=== PATIENT | male | born 2000 | race Two or more races ===

== ENCOUNTER 2021-12-09 23:07 | Emergency (ER) | payer OTHER ==
[~2021-12-09] VITALS: Ht 170.2 cm; Wt 68.0 kg
[2021-12-09 23:42] VITALS: BP 136/78
--- NOTE | 2021-12-10 00:33 | NUR ---
PT IS MEDICALLY CLEARED FOR BOOKING AND RELEASED IN STABLE CONDITION UNDER THE CARE OF [employer] OFFICERS. PT IS AMBULATORY ON STEADY GAIT. PT LEFT ON HAND CUFFS WITH [employer] OFFICERS
== END 2021-12-10 00:36 ==
LOC: ER 23:09
DX: R05.9 Cough, unspecified (principal); Z20.822 Contact with and (suspected) exposure to COVID-19
CPT/HCPCS: 87426; 99283; C9803

== ENCOUNTER 2025-03-30 19:29 | Emergency (ER) | payer OTHER ==
[~2025-03-30] VITALS: Ht 177.8 cm; Wt 72.6 kg
[2025-03-30] MEDS: OLANZAPINE 10 MG VIAL IM ONE (20:00)
[2025-03-30] MEDS: LORAZEPAM INJ 2 MG/ML VIAL IM ONE (20:00)
[2025-03-30 20:14] LABS: PLATELET COUNT (AUTO) 223 K/uL (150-450); RED BLOOD CELL COUNT(AUTO) 4.57 MIL/uL (4.5-6.0); RED CELL DISTRIBUTION WIDTH 13.8 % (11.5-15.0); WHITE BLOOD COUNT (AUTO) 7.1 K/uL (4.3-11.0)
[2025-03-30 20:23] LABS: APPEARANCE,URINE CLOUDY (CLEAR); BLOOD, URINE TRACE-INTA Ery/uL (NEGATIVE); LEUKOCYTE ESTERASE ,URINE NEGATIVE (NEGATIVE); NITRITE, URINE NEGATIVE (NEGATIVE); UGLUCOSE NEGATIVE (NEGATIVE)
[2025-03-30 20:27] LABS: CALCIUM, SERUM 8.5 mg/dL (8.5-10.1); CREATININE 0.8 mg/dL (0.6-1.3); SODIUM SERUM 138 mmol/L (136-145); UREA NITROGEN, BLOOD 8 mg/dL (7-18)
[2025-03-30] MEDS ORDERED: OLANZAPINE 10 MG VIAL IM ONE ×2 (20:28→23:04)
[2025-03-30] MEDS ORDERED: LORAZEPAM INJ 2 MG/ML VIAL ONE ×2 (20:29→23:04)
[2025-03-30 20:31] LABS: ASPARTATE AMINOTRANSFERASE 20 U/L (15-37); TOTAL PROTEIN, SERUM 7.2 g/dL (6.4-8.2)
[2025-03-30 20:32] LABS: AMPHETAMINE, URINE NEGATIVE (NEGATIVE); BARBITURATE, URINE NEGATIVE (NEGATIVE); BENZODIAZEPINE, URINE NEGATIVE (NEGATIVE); COCCAINE, URINE NEGATIVE (NEGATIVE); OPIATE, URINE NEGATIVE (NEGATIVE)
[2025-03-30 20:35] LABS: CANNABINOID, URINE POSITIVE (NEGATIVE)
[2025-03-30 21:18] LABS: ADD URINE CULTURE NO
[2025-03-30 21:19] LABS: SQUAMOUS EPITHELIAL CELL,UR 0-2 /HPF (None Seen)
[2025-03-30 21:36] LABS: ALCOHOL, BLOOD < 3 mg/dL (0-10)
[2025-03-31 13:00] VITALS: BP 134/62; TEMP 98.2; O2SAT 97
== END 2025-03-31 13:17 ==
LOC: ER 19:37
DX: F20.9 Schizophrenia, unspecified (principal); Z79.899 Other long term (current) drug therapy; Z20.822 Contact with and (suspected) exposure to COVID-19
CPT/HCPCS: 99291; 96372; 85025; 80048; 80076; 81001; 36415; 87426; 80143; 80320; 80307; J2060; J3490; G0480